=== PATIENT | female | born 1970 | race Caucasian/White ===

== ENCOUNTER 2021-01-02 12:47 | Emergency (ER) | payer OTHER ==
[~2021-01-02] VITALS: Ht 175.3 cm; Wt 117.9 kg
[2021-01-02 12:56] VITALS: BP 160/88
[2021-01-02] MEDS ORDERED: LEVO-T25 MCG PO (12:58)
[2021-01-02] MEDS ORDERED: TRAMADOL 50 MG50 MG PO (12:58)
--- NOTE | 2021-01-03 09:59 | EKG ---
[place] [address] ELECTROCARDIOGRAM REPORT Name: JEANETTE KOVACS Room: [facility]#: [id number] Admission: 01/02/21 Attend Phys: Discharge: 01/02/21 Date of : 74 Date of Service: 01/02/21 1253 Report #: [id number] THIS REPORT FOR: //name// [facility] ED Test Date: 2021-01-02 Test Time: 12:53:43 Pat Name: JEANETTE KOVACS Department: Room: Gender: F [employer]: VIOLETA : 1970 Requested By: Ritesh Weaver Order Number: [id number] Reading MD: Luis Daniel Guzman Measurements Intervals [place] Rate: 79 P: 60 TX: 185 QRS: 4 QRSD: 88 T: 7 QT: 505 QTc: 580 Interpretive Statements Sinus rhythm Low voltage, precordial leads Anteroseptal infarct, old Borderline T abnormalities, inferior leads Prolonged QT interval No previous ECG available for comparison Electronically Signed On 01-03-2021 9:58:46 CDT by Luis Daniel Guzman [email or web address] <ELECTRONICALLY SIGNED> By: Luis Daniel Guzman MD, [facility] 01/03/21 0958 1253 1253 Luis Daniel Guzman MD, [facility] /EPI
== END 2021-01-02 13:58 | disposition left against medical advice (07) ==
LOC: M.ERS 12:47
DX: Z53.21 Procedure and treatment not carried out due to patient leaving prior to being seen by health care provider (principal)